=== PATIENT | female | born 1955 | race Caucasian/White ===

== ENCOUNTER 2019-05-19 13:29 | Inpatient (IN) | payer MEDICARE ==
[~2019-05-19] VITALS: Ht 160 cm; Wt 63.5 kg
[2019-05-19 14:18] LABS: BASOPHILS 0.5 % (0-2); EOSINOPHILS 2.6 % (0-7); HEMATOCRIT 33.4 % (36.0-48.0); HEMOGLOBIN 10.4 g/dL (12-16); IMMATURE GRANULOCYTES 0.5 % (0-5); LYMPHOCYTES 22.4 % (15-50); MCH 29.6 pg (26.0-34.0); MCHC 31.1 g/dL (31.0-37.0); MCV 95.2 fL (80.0-100.0); MEAN PLATELET VOLUME 8.6 fL (7.4-10.4); MONOCYTES 11.3 % (2-11); NEUTROPHILS 62.7 % (40-80); PLATELET COUNT 259 10x3/uL (130-400); RBC 3.51 10x6/uL (4.00-5.40); RDW 14.8 % (11.5-14.5); WBC 8.1 10x3/uL (4.8-10.8)
[2019-05-19 14:42] LABS: CALC OSMOLALITY 280 mosm/kg (275-300); CALCIUM 8.1 mg/dL (8.5-10.1); CARBON DIOXIDE 32.7 mmol/L (21.0-32.0); CHLORIDE - SERUM 99 mmol/L (98-107); GLUCOSE 107 mg/dL (74-106); POTASSIUM - SERUM 4.2 mmol/L (3.5-5.1); SODIUM 140 mmol/L (136-145); UREA NITROGEN 17 mg/dL (7-18); eGFR NON AFRICAN AMERICAN 12 mL/min (90-120)
[2019-05-19 14:50] LABS: APTT 40.2 SECONDS (22.8-39.4)
[2019-05-19 14:51] LABS: INR 1.08 (0.85-1.17)
[2019-05-19 15:01] LABS: ALBUMIN 3.1 g/dL (3.4-5.0); ALKALINE PHOSPHATASE 67 U/L (30-120); ALT (SGPT) 11 U/L (10-68); BILIRUBIN - TOTAL 0.69 mg/dL (0.2-1.3); CKMB 0.7 U/L (0.0-3.6); CREATINE KINASE 64 UL (21-215); PROTEIN - SERUM 6.9 g/dL (6.4-8.2)
[2019-05-19 15:02] LABS: TROPONIN-I < 0.017 ng/mL (0.000-0.060)
[2019-05-19 15:22] LABS: PRO BNP 121088 pg/mL (0-125)
--- NOTE | 2019-05-19 17:00 | NUR ---
EDP STATES SHE ONLY WANTS PT TO HAVE 200 ML OF IVF NS.
[2019-05-19 19:00] VITALS: BP 179/84
--- NOTE | 2019-05-19 19:32 | NUR ---
PT ASKED FOR URINE, PT STATES SHE IS ON DIALYSIS AND DOES NOT MAKE URINE ANYMORE.
[2019-05-19] MEDS ORDERED: COREG12.5 MG PO (20:09)
[2019-05-19] MEDS ORDERED: FLUTICASONE PRO16 GM NASAL (20:09)
[2019-05-19] MEDS ORDERED: EMLA CREAM 30 G30 G1 TOPICAL (20:09)
[2019-05-19] MEDS ORDERED: PROTONIX40 MG PO (20:10)
[2019-05-19] MEDS ORDERED: RENVELA800 MG PO (20:10)
[2019-05-19] MEDS ORDERED: SYNTHROID88 MCG PO (20:11)
[2019-05-19] MEDS ORDERED: AMBIEN10 MG PO (20:11)
[2019-05-19] MEDS ORDERED: HYDROXYZINE HCL10 MG PO (20:12)
[2019-05-19] MEDS ORDERED: PROBIOTIC1 EAC1 PO (20:13)
[2019-05-19 20:20] VITALS: BMI 24.8
[2019-05-19 22:23] VITALS: BP 142/69
--- NOTE | 2019-05-19 23:30 | NUR ---
CALL OUT TO [employer]N HYDRAULIC PRESS OPERATOR FOR DR SPENCER, TO ASK FOR PTS HOME DOSE OF AMBIEN.
[2019-05-20 00:48] VITALS: BP 134/65
[2019-05-20 05:22] VITALS: BP 122/56
[2019-05-20 11:02] VITALS: BP 130/65
[2019-05-20 12:00] VITALS: BP 131/68
[2019-05-20] MEDS ORDERED: CETIRIZINE HCL5 MG PO (12:21)
[2019-05-20] MEDS ORDERED: FOLIC ACID1 MG PO (12:23)
[2019-05-20] MEDS ORDERED: COLACE100 MG PO (12:23)
[2019-05-20] MEDS ORDERED: PHOSLO667 MG PO (12:27)
--- NOTE | 2019-05-20 12:33 | NUR ---
SPOKE WITH VANNESA MIKE AND SHE STATES TO ORDER ALL THE NEW MEDS THAT WERE ADDED TO THE MED REC. I VERBALIZED UNDERSTANDING.
[2019-05-20 13:41] VITALS: Ht 160 cm; Wt 63.5 kg
[2019-05-20 14:48] LABS: BACTERIA MANY /hpf (NEGATIVE); BILIRUBIN NEGATIVE (NEGATIVE); GLUCOSE NEGATIVE (NEGATIVE); KETONE NEGATIVE (NEGATIVE); NITRITE NEGATIVE (NEGATIVE); RED CELLS - URINE >50 /hpf (0-5); SPECIFIC GRAVITY 1.005 (1.005-1.020); UROBILINOGEN NORMAL (NORMAL)
--- NOTE | 2019-05-20 15:56 | NUR ---
I have reviewed this patient and I concur with the Shift Assessment completed by the Licensed Practical Nurse today this shift.
[2019-05-20 16:00] VITALS: BP 170/76
--- NOTE | 2019-05-20 19:22 | NUR ---
EVENING ROUNDS COMPLETE. PT LAYING IN BED. NO SIGNS OF DISTRESS. AAOX4. PT DENIES ANY PAIN OR NEEDS AT THIS TIME. CL IN REACH, BED IN LOWEST POSITION.
--- NOTE | 2019-05-20 20:30 | NUR ---
PT PIV TO RIGHT AC INFILTRATED. NEW PIV 20G STARTED IN RIGHT FOREARM. NO SIGNS OF DISTRESS. PT TOLERATED WELL. NO OTHER NEEDS OR PAIN VOICED AT THIS TIME. CL IN REACH, BED IN LOWEST POSITION.
[2019-05-20 22:02] VITALS: BP 155/85
[2019-05-21 01:14] VITALS: BP 150/67
[2019-05-21 05:31] LABS: BASOPHILS 0.1 % (0-2); EOSINOPHILS 0.1 % (0-7); HEMATOCRIT 26.8 % (36.0-48.0); HEMOGLOBIN 8.4 g/dL (12-16); IMMATURE GRANULOCYTES 0.5 % (0-5); LYMPHOCYTES 26.3 % (15-50); MCH 29.6 pg (26.0-34.0); MCHC 31.3 g/dL (31.0-37.0); MCV 94.4 fL (80.0-100.0); MEAN PLATELET VOLUME 8.8 fL (7.4-10.4); MONOCYTES 10.1 % (2-11); NEUTROPHILS 62.9 % (40-80); PLATELET COUNT 240 10x3/uL (130-400); RBC 2.84 10x6/uL (4.00-5.40); RDW 14.6 % (11.5-14.5); WBC 7.8 10x3/uL (4.8-10.8)
[2019-05-21 06:01] LABS: ANION GAP 13.3 mmol/L (8-16); CALCIUM 7.8 mg/dL (8.5-10.1); CARBON DIOXIDE 29.5 mmol/L (21.0-32.0); PHOSPHOROUS 5.4 mg/dL (2.5-4.9); POTASSIUM - SERUM 4.8 mmol/L (3.5-5.1); URIC ACID 5.6 mg/dL (2.6-7.2)
[2019-05-21 06:12] LABS: CREATININE - SERUM 7.9 mg/dL (0.6-1.3)
[2019-05-21 06:51] VITALS: BP 170/84
--- NOTE | 2019-05-21 11:59 | NUR ---
I have reviewed this patient and I concur with the Shift Assessment completed by the Licensed Practical Nurse today this shift.
--- NOTE | 2019-05-21 17:00 | NUR ---
COMPLETE LINEN CHANGE DONE.
[2019-05-21 18:31] VITALS: BP 162/74
[2019-05-21 20:00] VITALS: BP 159/82
[2019-05-22 01:33] VITALS: BP 183/82
[2019-05-22 04:00] VITALS: BP 161/75
[2019-05-22 05:40] LABS: BASOPHILS 0.6 % (0-2); EOSINOPHILS 7.6 % (0-7); HEMATOCRIT 27.2 % (36.0-48.0); HEMOGLOBIN 8.3 g/dL (12-16); IMMATURE GRANULOCYTES 0.9 % (0-5); LYMPHOCYTES 33.3 % (15-50); MCH 29.3 pg (26.0-34.0); MCHC 30.5 g/dL (31.0-37.0); MCV 96.1 fL (80.0-100.0); MEAN PLATELET VOLUME 8.5 fL (7.4-10.4); MONOCYTES 8.1 % (2-11); NEUTROPHILS 49.5 % (40-80); PLATELET COUNT 192 10x3/uL (130-400); RBC 2.83 10x6/uL (4.00-5.40); RDW 14.7 % (11.5-14.5); WBC 8.9 10x3/uL (4.8-10.8)
[2019-05-22 05:49] LABS: % SATURATION 27 % (15-55); IRON 30 ug/dl (35-150); TOTAL IRON BIND CAPACITY 109 ug/dl (260-445); UNSAT IRON BIND CAPACITY 79 ug/dl (150-375)
[2019-05-22 06:09] LABS: ANION GAP 11.5 mmol/L (8-16); CALCIUM 7.8 mg/dL (8.5-10.1); CARBON DIOXIDE 30.2 mmol/L (21.0-32.0); POTASSIUM - SERUM 4.7 mmol/L (3.5-5.1)
[2019-05-22 06:17] LABS: PHOSPHOROUS 3.9 mg/dL (2.5-4.9)
--- NOTE | 2019-05-22 07:45 | NUR ---
ASSESSMENT DONE. FAMILY AT SIDE.
[2019-05-22 09:35] VITALS: BP 154/82
--- NOTE | 2019-05-22 12:27 | NUR ---
TO GI LAB FOR BRONCH
[2019-05-22 13:42] VITALS: BP 161/97
[2019-05-22 18:32] VITALS: BP 156/72
[2019-05-22 20:00] VITALS: BP 134/68
[2019-05-23] VITALS: BP 172/82
[2019-05-23 04:00] VITALS: BP 178/68
[2019-05-23 06:35] LABS: BASOPHILS 0.2 % (0-2); EOSINOPHILS 6.9 % (0-7); HEMOGLOBIN 8.8 g/dL (12-16); IMMATURE GRANULOCYTES 0.5 % (0-5); LYMPHOCYTES 19.2 % (15-50); MCH 29.5 pg (26.0-34.0); MCHC 30.3 g/dL (31.0-37.0); MCV 97.3 fL (80.0-100.0); MEAN PLATELET VOLUME 8.8 fL (7.4-10.4); MONOCYTES 8.5 % (2-11); NEUTROPHILS 64.7 % (40-80); PLATELET COUNT 227 10x3/uL (130-400); RBC 2.98 10x6/uL (4.00-5.40); RDW 15.2 % (11.5-14.5)
[2019-05-23 06:41] LABS: WBC 12.7 10x3/uL (4.8-10.8)
[2019-05-23 07:06] LABS: ANION GAP 15.8 mmol/L (8-16); PHOSPHOROUS 4.5 mg/dL (2.5-4.9); POTASSIUM - SERUM 4.8 mmol/L (3.5-5.1); VANCOMYCIN - RANDOM 21.3 ug/mL (10.0-20.0)
[2019-05-23 07:08] LABS: CREATININE - SERUM 7.6 mg/dL (0.6-1.3)
--- NOTE | 2019-05-23 07:20 | NUR ---
ASSESSMENT DOME. DENIES NEEDS
[2019-05-23 09:10] VITALS: BP 166/81
--- NOTE | 2019-05-23 12:47 | NUR ---
Nutrition Follow-up: Eating well. ~100% of breakfast eaten this AM. Denies N/V/C/D, chewing/swallowing difficulties. Diet: Renal No new wt; last wt: 140# (05/19) Last BM: 05/21 Labs noted: K+ 4.8, Ca 7.0 Meds noted: Protonix, Renagel, Phoslo -Continue current diet as tolerated. -RD following.
[2019-05-23 13:10] LABS: PROCALCITONIN 0.33 ng/mL (0.00-0.08)
--- NOTE | 2019-05-23 15:39 | NUR ---
I have reviewed this patient and I concur with the Shift Assessment completed by the Licensed Practical Nurse today this shift.
[2019-05-23 17:50] VITALS: BP 169/66
--- NOTE | 2019-05-23 19:10 | NUR ---
BEDSIDE REPORT RECEIVED FROM DAY SHIFT, PT CARE ASSUMED. INTRODUCED SELF AND WROTE NAME ON BOARD. PT LYING IN BED, WATCHING TV, AAOX4. DENIES ANY NEEDS AT THIS TIME. BED IN LOWEST POSITION, SR X2, CALL LIGHT WITHIN REACH. WILL CONTINUE TO MONITOR.
[2019-05-23 20:30] VITALS: BP 169/77
[2019-05-24 00:30] VITALS: BP 152/77
[2019-05-24 04:30] VITALS: BP 154/68
[2019-05-24 06:13] LABS: BASOPHILS 0.2 % (0-2); EOSINOPHILS 5.2 % (0-7); HEMATOCRIT 27.4 % (36.0-48.0); HEMOGLOBIN 8.4 g/dL (12-16); IMMATURE GRANULOCYTES 0.5 % (0-5); LYMPHOCYTES 16.7 % (15-50); MCH 29.9 pg (26.0-34.0); MCHC 30.7 g/dL (31.0-37.0); MCV 97.5 fL (80.0-100.0); MEAN PLATELET VOLUME 8.8 fL (7.4-10.4); MONOCYTES 11.3 % (2-11); NEUTROPHILS 66.1 % (40-80); PLATELET COUNT 196 10x3/uL (130-400); RBC 2.81 10x6/uL (4.00-5.40); RDW 15.1 % (11.5-14.5); WBC 12.5 10x3/uL (4.8-10.8)
[2019-05-24 06:32] LABS: ANION GAP 10.8 mmol/L (8-16)
[2019-05-24 06:33] LABS: CREATININE - SERUM 5.4 mg/dL (0.6-1.3); PHOSPHOROUS 2.8 mg/dL (2.5-4.9); POTASSIUM - SERUM 3.8 mmol/L (3.5-5.1)
--- NOTE | 2019-05-24 07:43 | NUR ---
RECIEVED REPORT. PATIENT IS ALERT AND AWAKE. DENIES ANY NEEDS AT THIS TIME.
[2019-05-24 08:58] VITALS: BP 191/78
[2019-05-24] MEDS ORDERED: SYMBICORT 80-10.2 GM INH (11:45)
[2019-05-24 12:20] VITALS: BP 182/90
--- NOTE | 2019-05-24 12:39 | MORECARE ---
CASE MANAGEMENT DISCHARGE SUMMARY PATIENT: ESMER LAST UNIT: [id number] ADM DATE: 05/19/19 AGE: 64 : 53 SEX: F ROOM/BED: D.1830 AUTHOR: ALEKS MCHUGH PHYSICIAN: REFERRING PHYSICIAN: DOMINICK VELASQUEZ MD DATE OF SERVICE: 05/24/19 Discharge Plan Patient Name: ESMER LAST Facility: [facility]:[place] : 1955 Planned Disposition: Home Anticipated Discharge Date: Discharge Date: Expected LOS: Initial Reviewer: [email or web address] Initial Review Date: 05/24/2019 Generated: 05/24/19 1:38 pm Comments DCP- Discharge Planning Updated by [email or web address]: Bushra Kay on 05/24/19 11:[address] Patient Name: ESMER LAST Admission Status: ER Accout number: [id number] Admission Date: 05-19-2019 : 1955 Admission Diagnosis: Attending: Dominick Velasquez Current LOS: 5 Anticipated DC Date: Planned Disposition: Home Primary Insurance: MEDICARE A & B Discharge Planning Comments: ESMER LAST provided verbal consent to discuss current and ongoing needs with/in the presence of SPOUSE. PLANS TO DC TO HOME TODAY. DENIES NEEDS FOR EQUIPMENT, HOME HEALTH OR REHAB. CM TO FOLLOW AND ASSIST NEEDED. IMM SIGNED. Rivet Flunky: Bushra MARINO - Discharge Planning Initial Assessment Updated by [email or web address]: Bushra Kay on 05/24/19 12:34 pm * Is the patient Alert and Oriented? Yes * PCP JOHANNA * Pharmacy [facility] * Preadmission Environment Home with Family * ADLs Independent * Other Equipment NEBULIZER * Community resources currently utilized None * Additional services required to return to the preadmission environment? No * Can the patient safely return to the preadmission environment? Yes * Has this patient been hospitalized within the prior 30 days at any hospital? No Coverage Notice Reviewer: [email or web address] - Bushra Kay Notice Issued Date-Time: 05/24/2019 12:32 Notice Type: IM Discharge Notice Notice Delivered To: Patient Relationship to Patient: Extension Service Specialist In Charge Name: Delivery Method: HAND - Hand Delivered Reyna Days: Prior Verbal Notification: Recipient Understood Notice: Yes Recipient Signature: Yes Med Rec Note Co-signed by Attending: Coverage Notice Comment: Patient Name: ESMER LAST Page 18589 at 1239 All edits/amendments must be made on the electronic document DICTATION DATE: 05/24/198 ATTIC BLOWER: JOSEP 05/24/198 RPT#: [id number] DC DATE: STATUS: ADM IN [facility] [address] [place] [address] END OF REPORT
--- NOTE | 2019-05-24 13:30 | NUR ---
PATIENT HAS BEEN DISCHARGED. DISCHARGE TEACHING HAS BEEN DONE AND PAPERS SIGNED. IV REMOVED WITH CATHETER INTACT. PATIENT IS GOING DOWNSTAIRS BY WHEELCHAIR AND ALL HER BELONGINGS HAVE BEEN PACKED UP AND ARE GOING WITH HER. IS GIVING HER A RIDE HOME.
[2019-05-24 14:08] LABS: ACID FAST SMEAR Negative (()); AFB SPECIMEN PROCESSING Concentration (())
--- NOTE | 2019-05-24 15:42 | MORECARE ---
CASE MANAGEMENT DISCHARGE SUMMARY PATIENT: ESMER LAST UNIT: [id number] ADM DATE: 05/19/19 AGE: 64 : 53 SEX: F ROOM/BED: D.6092 AUTHOR: ALEKS MCHUGH PHYSICIAN: REFERRING PHYSICIAN: DOMINICK VELASQUEZ MD DATE OF SERVICE: 05/24/19 Discharge Plan Patient Name: ESMER LAST Facility: [facility]:[place] : 1955 Planned Disposition: Home Anticipated Discharge Date: Discharge Date: 05/24/2019 Expected LOS: Initial Reviewer: [email or web address] Initial Review Date: 05/24/2019 Generated: 05/24/19 4:41 pm Comments DCP- Discharge Planning Updated by [email or web address]: Bushra Kay on 05/24/19 11:[address] Patient Name: ESMER LAST Admission Status: ER Accout number: [id number] Admission Date: 05-19-2019 : 1955 Admission Diagnosis: Attending: Dominick Velasquez Current LOS: 5 Anticipated DC Date: Planned Disposition: Home Primary Insurance: MEDICARE A & B Discharge Planning Comments: ESMER LAST provided verbal consent to discuss current and ongoing needs with/in the presence of SPOUSE. PLANS TO DC TO HOME TODAY. DENIES NEEDS FOR EQUIPMENT, HOME HEALTH OR REHAB. CM TO FOLLOW AND ASSIST NEEDED. IMM SIGNED. Lithographic Press Operator: Bushra MARINO - Discharge Planning Initial Assessment Updated by [email or web address]: Bushra Kay on 05/24/19 12:34 pm * Is the patient Alert and Oriented? Yes * PCP JOHANNA * Pharmacy [facility] * Preadmission Environment Home with Family * ADLs Independent * Other Equipment NEBULIZER * Community resources currently utilized None * Additional services required to return to the preadmission environment? No * Can the patient safely return to the preadmission environment? Yes * Has this patient been hospitalized within the prior 30 days at any hospital? No Coverage Notice Reviewer: [id number] - Bushra Kay Notice Issued Date-Time: 05/24/2019 12:32 Notice Type: IM Discharge Notice Notice Delivered To: Patient Relationship to Patient: Drop Count Associate Name: Delivery Method: HAND - Hand Delivered Reyna Days: Prior Verbal Notification: Recipient Understood Notice: Yes Recipient Signature: Yes Med Rec Note Co-signed by Attending: Coverage Notice Comment: Last DP export: 05/24/19 11:39 a Patient Name: ESMER LAST Page [phone] at 1542 All edits/amendments must be made on the electronic document DICTATION DATE: 05/24/191541 STAVE LOG CUT OFF SAW OPERATOR: JOSEP 05/24/19 1542 RPT#: [id number] DC DATE:05/24/19 STATUS: DIS IN [address] [place] [address] END OF REPORT
[2019-05-26 13:09] LABS: FUNGUS STAIN Final report (())
== END 2019-05-24 13:38 | disposition home or self-care (01) | DRG 193 ==
LOC: D.ER 13:29 → D.M2 17:59
PROVIDERS: Family Medicine; Internal Medicine Pulmonary Disease; ADMIT Internal Medicine Nephrology; ATTEND Internal Medicine Nephrology
PROC: 5A1D70Z Performance of Urinary Filtration, Intermittent, Less than 6 Hours Per Day (ICD-10-PCS; 2019-05-21)
PROC: 0BD48ZX Extraction of Right Upper Lobe Bronchus, Via Natural or Artificial Opening Endoscopic, Diagnostic (ICD-10-PCS; 2019-05-22)
PROC: 0B9J8ZX Drainage of Left Lower Lung Lobe, Via Natural or Artificial Opening Endoscopic, Diagnostic (ICD-10-PCS; 2019-05-22)
PROC: 0B9C8ZX Drainage of Right Upper Lung Lobe, Via Natural or Artificial Opening Endoscopic, Diagnostic (ICD-10-PCS; 2019-05-22)
PROC: 0B9F8ZX Drainage of Right Lower Lung Lobe, Via Natural or Artificial Opening Endoscopic, Diagnostic (ICD-10-PCS; 2019-05-22)
PROC: 0BD68ZX Extraction of Right Lower Lobe Bronchus, Via Natural or Artificial Opening Endoscopic, Diagnostic (ICD-10-PCS; principal; 2019-05-22 13:00)
DX: J18.9 Pneumonia, unspecified organism (principal); N18.6 End stage renal disease; I12.0 Hypertensive chronic kidney disease with stage 5 chronic kidney disease or end stage renal disease; D63.1 Anemia in chronic kidney disease; E83.39 Other disorders of phosphorus metabolism; N30.90 Cystitis, unspecified without hematuria

== ENCOUNTER → 2019-05-28 15:20 | Outpatient (CLI) | payer MEDICARE ==
[2019-05-20 13:41] VITALS: BMI 24.8
[~2019-05-28 15:20] MED LIST: AMBIEN10 MG PO; CETIRIZINE HCL5 MG PO; COLACE100 MG PO; COREG12.5 MG PO; EMLA CREAM 30 G30 G1 TOPICAL; FLUTICASONE PRO16 GM NASAL; FOLIC ACID1 MG PO; HYDROXYZINE HCL10 MG PO; PHOSLO667 MG PO; PROBIOTIC1 EAC1 PO; PROTONIX40 MG PO; RENVELA800 MG PO; SYMBICORT 80-10.2 GM INH; SYNTHROID88 MCG PO
[2019-05-29 05:09] LABS: IMMUNOGLOBULIN G 1323 mg/dL (700-1600)
[2019-05-29 08:09] LABS: DOUBLE-STRANDED DNA ABS <1 IU/mL (0-9)
== END | disposition home or self-care (01) ==
LOC: D.LAB 15:20
PROVIDERS: ATTEND Internal Medicine Pulmonary Disease
DX: N18.6 End stage renal disease (principal)

== ENCOUNTER 2019-07-08 14:31 | Emergency (ER) | payer MEDICARE ==
[~2019-07-08] VITALS: Ht 160 cm; Wt 59.1 kg
[2019-07-08 14:46] VITALS: Ht 160 cm; Wt 59.1 kg
[2019-07-08 15:12] LABS: BASOPHILS 0.7 % (0-2); EOSINOPHILS 1.7 % (0-7); HEMATOCRIT 41.8 % (36.0-48.0); HEMOGLOBIN 12.4 g/dL (12-16); IMMATURE GRANULOCYTES 0.2 % (0-5); LYMPHOCYTES 22.1 % (15-50); MCHC 29.7 g/dL (31.0-37.0); MCV 97.9 fL (80.0-100.0); MEAN PLATELET VOLUME 9.6 fL (7.4-10.4); NEUTROPHILS 63.3 % (40-80); PLATELET COUNT 200 10x3/uL (130-400); RBC 4.27 10x6/uL (4.00-5.40); RDW 15.3 % (11.5-14.5); WBC 8.7 10x3/uL (4.8-10.8)
[2019-07-08 15:42] LABS: BILIRUBIN NEGATIVE (NEGATIVE); GLUCOSE NEGATIVE (NEGATIVE); KETONE NEGATIVE (NEGATIVE); NITRITE NEGATIVE (NEGATIVE); UROBILINOGEN NORMAL (NORMAL)
[2019-07-08 15:44] LABS: BACTERIA FEW /hpf (NEGATIVE); EPITHELIAL CELLS OCC /hpf (0-5); RED CELLS - URINE >50 /hpf (0-5)
[2019-07-08 15:48] LABS: CALCIUM 8.6 mg/dL (8.5-10.1); CARBON DIOXIDE 31.9 mmol/L (21.0-32.0); CREATININE - SERUM 7.6 mg/dL (0.6-1.3); POTASSIUM - SERUM 4.9 mmol/L (3.5-5.1)
[2019-07-08 16:00] LABS: ALBUMIN 3.7 g/dL (3.4-5.0); BILIRUBIN - TOTAL 0.41 mg/dL (0.2-1.3)
[2019-07-08] MEDS ORDERED: HYDROCODON-ACE1 EAC7 PO (16:22)
[2019-07-08] MEDS ORDERED: FLOMAX0.4 MG PO (16:22)
[2019-07-08] MEDS ORDERED: ZOFRAN4 MG PO (16:37)
[2019-07-08 20:05] VITALS: BP 179/83
== END 2019-07-08 20:05 | disposition home or self-care (01) ==
LOC: D.ER 14:31
PROVIDERS: Family Medicine
DX: N20.1 Calculus of ureter (principal); Z99.2 Dependence on renal dialysis; E07.9 Disorder of thyroid, unspecified; I12.9 Hypertensive chronic kidney disease with stage 1 through stage 4 chronic kidney disease, or unspecified chronic kidney disease; N18.9 Chronic kidney disease, unspecified; R31.9 Hematuria, unspecified; R10.30 Lower abdominal pain, unspecified

== ENCOUNTER → 2019-07-16 20:51 | Outpatient (CLI) | payer MEDICARE ==
[2019-07-08 14:46] VITALS: BMI 23.0
[~2019-07-16 20:51] MED LIST changes: +FLOMAX0.4 MG PO; +HYDROCODON-ACE1 EAC7 PO; +ZOFRAN4 MG PO
== END | disposition home or self-care (01) ==
LOC: D.LABREF 20:51
PROVIDERS: ATTEND Urology
DX: R31.9 Hematuria, unspecified (principal); R82.90 Unspecified abnormal findings in urine

== ENCOUNTER → 2019-07-31 10:20 | Outpatient (CLI) | payer MEDICARE ==
[2019-07-08 14:46] VITALS: BMI 23.0
== END | disposition home or self-care (01) ==
LOC: D.RT 06-25 14:00 → D.CT 06-25 15:00 → D.RT 07-15 12:00 → D.CT 07-15 12:00 → D.RT 07-15 15:00 → D.CT 07-15 15:30 → D.RT 10:30 → D.CT 11:00 → D.RT 08-14 13:00
PROVIDERS: ATTEND Internal Medicine Pulmonary Disease
DX: R05 Cough (principal); R93.89 Abnormal findings on diagnostic imaging of other specified body structures

== ENCOUNTER → 2019-08-02 14:54 | Outpatient (CLI) | payer MEDICARE ==
[2019-07-08 14:46] VITALS: BMI 23.0
== END | disposition home or self-care (01) ==
LOC: D.LABREF 14:54
PROVIDERS: ATTEND Internal Medicine Pulmonary Disease
DX: R06.02 Shortness of breath (principal)

== ENCOUNTER → 2019-08-05 14:45 | Outpatient (CLI) | payer MEDICARE ==
[2019-07-08 14:46] VITALS: BMI 23.0
== END | disposition home or self-care (01) ==
LOC: D.RT 14:45
PROVIDERS: ATTEND Internal Medicine Pulmonary Disease
DX: R05 Cough (principal)

== ENCOUNTER 2019-09-19 06:14 | Day surgery (SDC) | payer MEDICARE ==
[~2019-09-19] VITALS: Ht 160 cm; Wt 61.2 kg
--- NOTE | ~2019-09-19 | OP ---
PATIENT NAME: ESMER FLANAGAN MEDICAL RECORD: [id number] :[birth year] LOCATION:[facility] ADMISSION DATE: SURGEON: DILSHAD JHAVERI MD DATE OF OPERATION: 09/19/2019 REFERRED BY: Kannan Harley MD PREOPERATIVE DIAGNOSES: End-stage renal disease, dependence on hemodialysis and ischemic steal syndrome with gangrenous ulceration occurring on the dorsum of the left metacarpophalangeal joint and tips of the first and second and third fingers. POSTOPERATIVE DIAGNOSES: End-stage renal disease, dependence on hemodialysis and ischemic steal syndrome with gangrenous ulceration occurring on the dorsum of the left metacarpophalangeal joint and tips of the first and second and third fingers. OPERATION PERFORMED: Ligation of AV fistula. SURGEON: Dilshad Jhaveri MD ANESTHESIA: General with LMA per RN MOBILE. PREOPERATIVE NOTE: Ms. Flanagan is a 64-year-old white female patient who has had a left brachiocephalic AV fistula for about 2 years, it was constructed in [place] by her history. She apparently had very early steal symptoms, which required at least 1 revisionary operation, which resulted in at least short term moderate reduction and symptoms, but she has for many months now continued to have numbness and ischemic pain in the hand, particularly while on dialysis. She has developed ulcerations of the tips of 3 fingers and more concerning an ulceration over the second MP joint, which extends down to or close to the bone or periosteum. This area is very painful. She has been treated at the [facility] wound clinic without success and Dr. Wisdom has apparently felt that there was likely ongoing ischemia, now for some time. She was studied at [facility] this week and noted to have very little flow into the hand with the fistula functioning and Dr. Harley referred her to me. Because of the length of her symptoms and the severity of the hand lesions, I have recommended ligation of the fistula and an option would perhaps have been banding, a better option perhaps proximal arterialization or implantation of the graft between the proximal brachial or even the axillary artery and the cephalic vein fistula; however, I think the best thing to do today is to ligate the fistula and come back another day after we get bilateral upper extremity CTAs to evaluate the arterial inflow. She will need a bridging catheter and so was to have a HemoSplit inserted. DESCRIPTION OF PROCEDURE: Under general anesthesia per RN MOBILE, she was prepped and draped in sterile manner. The arm was extended and a transverse incision across the antecubital space made and the underlying cephalic vein fistula exposed and encircled and ligated doubly with 2-0 silk close to the arterial anastomosis and proximal. The radial artery pulse at the wrist immediately returned and was quite strong, and her hand began to pink up rapidly. The wound was infiltrated with 0.25% Marcaine without epinephrine and closed with interrupted inverted 3-0 Vicryl sutures and running intracuticular OPERATIVE REPORT [id number] ESMER FLANAGAN. The incision was sealed with Dermabond glue and dressed with Maxorb Ag, Tegaderm, and Cavilon skin prep. The patient was then completely reprepped and redraped for insertion of a HemoSplit. I located the right internal jugular vein with ultrasound and noted it to be of normal caliber and fully compressible and no sonographic abnormalities were identified. A small incision was made over the vein and with continuous real-time ultrasound guidance, a micropuncture needle and guidewire were inserted into the internal jugular vein. A catheter wire exchange was made and then under fluoroscopy, the guidewire was placed in the right atrium and dilators passed over that and lastly a dilator peel-away sheath inserted. I chose a 19-cm long HemoSplit catheter and made a small incision beneath the clavicle and inserted the catheter through that incision and through a short subcutaneous tunnel, bringing it up to the cervical incision and then it was inserted through the peel-away sheath. It was positioned with the venous limb lateral. Both lumens were accessed and aspirated, free return of blood from each was confirmed after which the catheter was heparin locked with 100 units per cc heparin. The catheter was sutured to the skin near the entry site with 2-0 Prolene and the cervical incision was closed with interrupted inverted 3-0 Vicryl and Dermabond glue and dressed with Maxorb Ag, Tegaderm, and Cavilon skin prep. A standard CVL dressing with chlorhexidine BioPatch was placed on the catheter. Ultrasound images are recorded on paper and placed in the patient's chart for permanent documentation purposes. The patient will be discharged from the hospital today and return to see me in my office in 2 weeks. She is to leave the initial dressing dry and intact. I have asked if possible, she have an appointment made to see Dr. Wisdom next week. My concern is that any infection in the soft tissues or periosteum be cleared up before and any osteomyelitis identified and treated appropriately. I will plan to return her to the operating room at some point in the near future after we get bilateral upper extremity CTAs and when her hand is dramatically better. Blood loss during the operation was about 10 cc, unreplaced. Sponges, instruments, and needles were accounted for. No drain was used and no surgical specimen was submitted for histopathology. TRANSINT:[id number] Voice Confirmation ID: [id number] DOCUMENT ID: [id number] cc: [facility] DILSHAD JHAVERI MD CC: KANNAN HARLEY and REINALDO WISDOM MD [id number] DICTATION DATE: 09/19/19 1242 JEWEL BEARING TURNER: 09/19/19 1350 [facility] [address] [place] [address]
[2019-09-19 06:43] LABS: BASOPHILS 0.8 % (0-2); EOSINOPHILS 5.3 % (0-7); HEMATOCRIT 36.8 % (36.0-48.0); HEMOGLOBIN 10.9 g/dL (12-16); IMMATURE GRANULOCYTES 0.3 % (0-5); MCH 28.5 pg (26.0-34.0); MCHC 29.6 g/dL (31.0-37.0); MCV 96.3 fL (80.0-100.0); MEAN PLATELET VOLUME 8.6 fL (7.4-10.4); MONOCYTES 12.3 % (2-11); NEUTROPHILS 49.3 % (40-80); PLATELET COUNT 161 10x3/uL (130-400); RBC 3.82 10x6/uL (4.00-5.40); RDW 14.8 % (11.5-14.5); WBC 6.6 10x3/uL (4.8-10.8)
[2019-09-19 06:52] LABS: ANION GAP 9.6 mmol/L (8-16); CALCIUM 7.8 mg/dL (8.5-10.1); CARBON DIOXIDE 32.9 mmol/L (21.0-32.0); CREATININE - SERUM 5.8 mg/dL (0.6-1.3); POTASSIUM - SERUM 4.5 mmol/L (3.5-5.1)
[2019-09-19 07:01] LABS: INR 0.92 (0.85-1.17); PROTIME 12.3 SECONDS (11.6-15.0)
[2019-09-19 08:50] VITALS: Ht 160 cm; Wt 61.2 kg
[2019-09-19] MEDS ORDERED: HYDROCODON-ACE1 EAC7 PO (11:50)
--- NOTE | 2019-09-19 11:54 | NUR ---
ICE APPLIED TO CHEST HEMESPLIT PER VERBAL ORDER . L.HAND DRSG CDI, L.ARM DRSG CDI. BP TRENDING DOWN POST IV HYDRALAZINE TREATMENT. PAIN GETTING BETTER PER PATIENT POST IV PAIN MEDICATION GIVEN. NO FURTHER NEEDS. WILL TRANSFER PT BACK TO OUTPATIENT SHORTLY.
--- NOTE | 2019-09-19 18:43 | NUR ---
1207 PT HAS A HEMASPLIT IN RIGHT SUBCLAVIAN. DSG CDI. 1400 PT STILL VERY SLEEPY AND KEEPING A LOW OXYGEN SATURATION. BNC 2L PUT ON PT. 1455 PT MORE AWAKE AND WANTING TO SIT UP. DC'D. BNC. O2 SAT ON BNC 98%. 1458 PT BECOMING NAUSEATED AFTER SITTING ON SOB. 1520 IV DC'D BY ADAM LIND RN AFTER GIVING IV ZOFRAN. IV WOULD NOT FLUSH PROPERLY. PT NOT NAUSEATED AT THE MOMENT
--- NOTE | 2019-09-19 18:52 | NUR ---
1535 PT NAUSEATED AGAIN. DRY HEAVING. SL ZOFRAN GIVEN TO PT PER ADAM LIND, RN 1605 PT VSS. DENIES NAUSEA AFTER SL ZOFRAN. PT VOICES DESIRE TO GO HOME. DISCHARGE INSTRUCTIONS WERE GIVEN TO HER AND HER WHO BOTH VOICE UNDERSTANDING OF INSTRUCTIONS. PT AAOX3.
== END 2019-09-19 16:05 | disposition home or self-care (01) ==
LOC: D.OPS 06:14
PROVIDERS: ATTEND Internal Medicine Nephrology
DX: N18.6 End stage renal disease (principal); Z99.2 Dependence on renal dialysis; T82.898A Other specified complication of vascular prosthetic devices, implants and grafts, initial encounter; R06.02 Shortness of breath; R05 Cough; M79.672 Pain in left foot; M79.671 Pain in right foot; Z86.73 Personal history of transient ischemic attack (TIA), and cerebral infarction without residual deficits

== ENCOUNTER 2019-09-21 16:10 | Inpatient (IN) | payer MEDICARE ==
[~2019-09-21] VITALS: Ht 160 cm; Wt 63.0 kg
[2019-09-21 17:27] LABS: HEMATOCRIT 30.9 % (36.0-48.0); HEMOGLOBIN 9.7 g/dL (12-16); LYMPHOCYTES 29.7 % (15-50); MCH 29.5 pg (26.0-34.0); MCHC 31.4 g/dL (31.0-37.0); MCV 93.9 fL (80.0-100.0); MEAN PLATELET VOLUME 8.3 fL (7.4-10.4); NEUTROPHILS 55.2 % (40-80); PLATELET COUNT 145 10x3/uL (130-400); RBC 3.29 10x6/uL (4.00-5.40); RDW 14.3 % (11.5-14.5); WBC 8.1 10x3/uL (4.8-10.8)
[2019-09-21 17:34] LABS: APTT 34.5 SECONDS (22.8-39.4); INR 1.04 (0.85-1.17); PROTIME 13.5 SECONDS (11.6-15.0)
[2019-09-21 17:35] LABS: D-DIMER-QUANTITATIVE 1.02 ug/mLFEU (0.20-0.54)
--- NOTE | 2019-09-21 17:44 | NUR ---
US AT PT BEDSIDE
[2019-09-21 17:52] LABS: CALC OSMOLALITY 291 mosm/kg (275-300); CALCIUM 7.5 mg/dL (8.5-10.1); CARBON DIOXIDE 27.4 mmol/L (21.0-32.0); CHLORIDE - SERUM 100 mmol/L (98-107); CREATININE - SERUM 10.7 mg/dL (0.6-1.3); GLUCOSE 95 mg/dL (74-106); SODIUM 136 mmol/L (136-145); UREA NITROGEN 69 mg/dL (7-18); eGFR NON AFRICAN AMERICAN 4 mL/min (90-120)
--- NOTE | 2019-09-21 17:55 | NUR ---
ULTRA SOUND DONE. PT MINO. WELL.
[2019-09-21 18:06] LABS: BILIRUBIN NEGATIVE (NEGATIVE); GLUCOSE 50 mg/dL (NEGATIVE); KETONE NEGATIVE (NEGATIVE); NITRITE NEGATIVE (NEGATIVE); SPECIFIC GRAVITY 1.005 (1.005-1.020); UROBILINOGEN NORMAL (NORMAL)
[2019-09-21 18:07] LABS: BACTERIA FEW /hpf (NEGATIVE); EPITHELIAL CELLS 0-5 /hpf (0-5); RED CELLS - URINE 0-5 /hpf (0-5); WHITE CELLS - URINE 0-5 /hpf (NEGATIVE)
[2019-09-21 18:09] LABS: ALBUMIN 3.1 g/dL (3.4-5.0); ALKALINE PHOSPHATASE 119 U/L (30-120); ALT (SGPT) 32 U/L (10-68); CREATINE KINASE 79 UL (21-215); PROTEIN - SERUM 6.8 g/dL (6.4-8.2)
[2019-09-21 18:22] LABS: TROPONIN-I < 0.017 ng/mL (0.000-0.060)
[2019-09-21 18:26] LABS: POTASSIUM - SERUM 6.1 mmol/L (3.5-5.1)
--- NOTE | 2019-09-21 21:07 | NUR ---
DR CHRISTA CONNOR
--- NOTE | 2019-09-21 21:30 | NUR ---
DR GOODWIN INFORMED OF PT CONDITION, PT C/O SOB AND HTN. SEE EMAR.
--- NOTE | 2019-09-21 23:08 | NUR ---
PT BROUGHT TO ROOM CV 08 FROM THE FLOOR, PT IN RESP DISTRESS AND UNABLE TO SAY MORE 2-3 WORDS AT A TIME. PT WAS PLACED ON BIPAP, PT HAVING TO SIT IN HIGH FOLWER TO BREATH, PT USING ACESSORY MUSLCE TO BREATH, INTERCOSTAL RETRACTIONS, PT MOANING BUT WILL ANSWER QUESTIONS.
--- NOTE | 2019-09-21 23:17 | NUR ---
UNKNOWN TIME TO WHEN PT ARRIVED FROM ER TO 2136 I WAS IN ROOM TO RECIEVE PT I IMEDIATLY RECOGNIZED PT WS IN RESP DISTRESS SO I QUICKLY OVTAINED VS SPO2 80% DISPITE PT BEING ON 4 L I COULD HERE NO AIR MOVEMENT AND BP WAS NOT QUICKLY OBTAINED I CALLED A RAPID DURING RAPID APRESSOLINE 10MG WAS GIVEN BX TX AND BICARB AFTER BP 234/140 AND ABGS DONE DURING RAPID IT WAS DETERMINED PT NEEDED TRANSFER TO CVICU PT HAS NOW BEEN TRANSFERED TO CVICU-8 AND I HAVE NOTIFIED OF TRANSFER
[2019-09-21 23:21] VITALS: BP 209/106; BMI 24.6
--- NOTE | 2019-09-21 23:24 | NUR ---
NA/BICARB FLUIDS STOPED AT 2100
[2019-09-22] VITALS (12 sets, daily range): BP systolic 120–186; BP diastolic 69–111; Ht 160 cm; Wt 63.0 kg
--- NOTE | 2019-09-22 01:00 | NUR ---
PT STILL HAVING LABORED BREATHING BUT LESS ACCESSORY MUSCLE USE, PT STATES THAT SHE IS BREATHING A LITTLE BIT BETTER
--- NOTE | 2019-09-22 01:00 | NUR ---
PT SHOWING IMPROVED BREATHING AND LESS WORK OF BREATHING ON BIPAP, PT ADVISED THAT SHE WAS BREATHING MUCH BETTER
--- NOTE | 2019-09-22 02:00 | NUR ---
PT HAS MARKED IMPROVEMENT IN WORK OF BREATHING, PT IS MORE RELAXED AND ABLE TO TALK IN SENTENCES, VSS BECOMING MORE STABLE WILL MONITOR AND TREAT B/P NEEDED
--- NOTE | 2019-09-22 03:00 | NUR ---
PT REASSESSMENT COMPLETED AT THIS TIME, PT RESTING SOUNDLY, RESP EVEN AND NONLABORED, VSS, NO DISTRESS NOTED
--- NOTE | 2019-09-22 05:04 | NUR ---
DR. MCFADDEN CALLED AND WAS UPDATED ON THE PATIENTS COND. NEW ORDERS NOTED
[2019-09-22 07:05] LABS: BASOPHILS 0.2 % (0-2); EOSINOPHILS 0.2 % (0-7); HEMATOCRIT 34.8 % (36.0-48.0); HEMOGLOBIN 10.8 g/dL (12-16); IMMATURE GRANULOCYTES 0.2 % (0-5); LYMPHOCYTES 16.6 % (15-50); MCH 29.7 pg (26.0-34.0); MCV 95.6 fL (80.0-100.0); MEAN PLATELET VOLUME 8.8 fL (7.4-10.4); MONOCYTES 5.9 % (2-11); NEUTROPHILS 76.9 % (40-80); PLATELET COUNT 129 10x3/uL (130-400); RBC 3.64 10x6/uL (4.00-5.40); RDW 14.9 % (11.5-14.5)
[2019-09-22 07:10] LABS: WBC 10.7 10x3/uL (4.8-10.8)
[2019-09-22 07:12] LABS: ANION GAP 21.2 mmol/L (8-16); CALCIUM 8.3 mg/dL (8.5-10.1); CARBON DIOXIDE 21.7 mmol/L (21.0-32.0); CREATININE - SERUM 11.3 mg/dL (0.6-1.3); POTASSIUM - SERUM 5.9 mmol/L (3.5-5.1)
[2019-09-22 07:36] LABS: PHOSPHOROUS 10.4 mg/dL (2.5-4.9)
--- NOTE | 2019-09-22 08:51 | NUR ---
0700 PT RECIEVED ALERT AND ORIENTED VSS ON ROOM AIR L ARM RESERVE, REDNESS NOTED, RFA PIV SL, R CHEST HEMESPLIT DRESSING CDI, DENIES PAIN AND ALL NEEDS 0850 TOOK AM MEDS WITHOUT DIFFICULTY, ATE 50% BREAKFAST, DR MCFADDEN AWARE OF PHOSPHORUS, OK TO TRANSFER TO FLOOR NOW AND HAVE DIALYSIS IN OTHER UNIT
--- NOTE | 2019-09-22 09:27 | NUR ---
REPORT CALLED TO JD PT TO TRANSFER TO 2136, PT IN ROOM AND AWARE
--- NOTE | 2019-09-22 10:16 | NUR ---
PT ARIVED VIA WHEELCHIAR TO ROOM. ALERT AND ORIENTED, UP WITHOUT DIFFICULTY. NO COMPLAINTS OR CONCERNS AT THIS TIME. CL IN REACH,SR X2. AT BEDSIDE.
--- NOTE | 2019-09-22 11:23 | NUR ---
PT TAKEN TO DIALYSIS VIA BED.
--- NOTE | 2019-09-22 14:09 | NUR ---
PT STILL IN DIALYSIS.
--- NOTE | 2019-09-22 15:11 | NUR ---
PT AWAKE AND OREITNED, BACK FROM DIALYSIS.
--- NOTE | 2019-09-22 19:33 | NUR ---
DENIES ANY NEEDS AT THIS TIME PT IS ALERT AND AWAKE NO STRUGGLES TO BREATH BED LOW AND LOCKED AND CALL LIGHT IS WITH PT
[2019-09-23] VITALS (7 sets, daily range): BP systolic 153–210; BP diastolic 69–98
--- NOTE | 2019-09-23 05:00 | NUR ---
I have reviewed this patient and I concur with the Shift Assessment completed by the Licensed Practical Nurse today this shift.
--- NOTE | 2019-09-23 07:30 | NUR ---
REPORT RECIEVED. PT SITTING SEMI FOWLERS IN BED. RR EVEN AND UNLABORED ON RA. PT HAS A R HAND PIV THAT IS SL. BED LOCKED AND IN LOWEST POSITION, CALL LIGHT WITHIN REACH. WILL CTM
--- NOTE | 2019-09-23 19:23 | NUR ---
AROUSES EASILY PT DENIES NEEDS AT THIS TIME BED IS LOW AND LOCKED CALL LIGHT IS WITH THE PT
[2019-09-24] VITALS: BP 165/81
[2019-09-24 04:00] VITALS: BP 157/81
--- NOTE | 2019-09-24 05:44 | NUR ---
I have reviewed this patient and I concur with the Shift Assessment completed by the Licensed Practical Nurse today this shift.
[2019-09-24 06:42] LABS: ALBUMIN 2.6 g/dL (3.4-5.0); BILIRUBIN - TOTAL 0.42 mg/dL (0.2-1.3); CALCIUM 7.7 mg/dL (8.5-10.1); CREATININE - SERUM 9.6 mg/dL (0.6-1.3); MAGNESIUM - SERUM 2.3 mg/dL (1.8-2.4); PROTEIN - SERUM 5.2 g/dL (6.4-8.2); VANCOMYCIN - RANDOM 22.8 ug/mL (10.0-20.0)
[2019-09-24 06:43] LABS: ANION GAP 12.1 mmol/L (8-16); CARBON DIOXIDE 29.3 mmol/L (21.0-32.0); PHOSPHOROUS 7.1 mg/dL (2.5-4.9); POTASSIUM - SERUM 4.4 mmol/L (3.5-5.1)
[2019-09-24 07:05] LABS: HEMOGLOBIN 8.8 g/dL (12-16); LYMPHOCYTES 37.4 % (15-50); MCH 29.3 pg (26.0-34.0); MCHC 31.8 g/dL (31.0-37.0); MEAN PLATELET VOLUME 9.2 fL (7.4-10.4); NEUTROPHILS 48.4 % (40-80); PLATELET COUNT 130 10x3/uL (130-400); RDW 13.7 % (11.5-14.5)
[2019-09-24 07:07] LABS: HEMATOCRIT 27.7 % (36.0-48.0); MCV 92.3 fL (80.0-100.0); WBC 6.8 10x3/uL (4.8-10.8)
[2019-09-24 10:10] VITALS: BP 179/95
== END 2019-09-24 16:54 | disposition home or self-care (01) | DRG 314 ==
LOC: D.ER 16:10 → D.CVICU 19:21 → D.M2 19:21 → D.CVICU 23:09 → D.M2 09-22 09:47
PROVIDERS: Family Medicine; Internal Medicine Nephrology; ADMIT Internal Medicine; ATTEND Internal Medicine
PROC: 5A1D70Z Performance of Urinary Filtration, Intermittent, Less than 6 Hours Per Day (ICD-10-PCS; principal; 2019-09-22)
DX: T82.898A Other specified complication of vascular prosthetic devices, implants and grafts, initial encounter (principal); N18.6 End stage renal disease; I12.0 Hypertensive chronic kidney disease with stage 5 chronic kidney disease or end stage renal disease; N25.81 Secondary hyperparathyroidism of renal origin; J81.1 Chronic pulmonary edema; Y83.9 Surgical procedure, unspecified as the cause of abnormal reaction of the patient, or of later complication, without mention of misadventure at the time of the procedure; E03.9 Hypothyroidism, unspecified

== ENCOUNTER → 2019-10-07 09:24 | Outpatient (CLI) | payer MEDICARE ==
[2019-09-22 13:01] VITALS: BMI 24.5
== END | disposition home or self-care (01) ==
LOC: D.CT 09:24
PROVIDERS: ATTEND Surgery
DX: Z86.73 Personal history of transient ischemic attack (TIA), and cerebral infarction without residual deficits (principal); R09.89 Other specified symptoms and signs involving the circulatory and respiratory systems; I73.9 Peripheral vascular disease, unspecified

== ENCOUNTER → 2019-10-16 09:29 | Outpatient (CLI) | payer MEDICARE ==
[2019-09-22 13:01] VITALS: BMI 24.5
== END | disposition home or self-care (01) ==
LOC: D.CT 09:29
PROVIDERS: ATTEND Surgery
DX: Z86.73 Personal history of transient ischemic attack (TIA), and cerebral infarction without residual deficits (principal); R09.89 Other specified symptoms and signs involving the circulatory and respiratory systems; I73.9 Peripheral vascular disease, unspecified; N18.6 End stage renal disease; Z99.2 Dependence on renal dialysis; E07.9 Disorder of thyroid, unspecified

== ENCOUNTER 2019-10-28 06:13 | Day surgery (SDC) | payer MEDICARE ==
[~2019-10-28] VITALS: Ht 160 cm; Wt 61.2 kg
[2019-10-28 06:31] LABS: BASOPHILS 0.7 % (0-2); EOSINOPHILS 4.6 % (0-7); HEMATOCRIT 40.1 % (36.0-48.0); HEMOGLOBIN 12.8 g/dL (12-16); IMMATURE GRANULOCYTES 0.3 % (0-5); LYMPHOCYTES 31.7 % (15-50); MCH 31.4 pg (26.0-34.0); MCHC 31.9 g/dL (31.0-37.0); MCV 98.5 fL (80.0-100.0); MEAN PLATELET VOLUME 9.2 fL (7.4-10.4); MONOCYTES 10.7 % (2-11); PLATELET COUNT 152 10x3/uL (130-400); RBC 4.07 10x6/uL (4.00-5.40); RDW 15.5 % (11.5-14.5); WBC 7.4 10x3/uL (4.8-10.8)
[2019-10-28 07:23] LABS: ANION GAP 15.5 mmol/L (8-16); CALCIUM 8.2 mg/dL (8.5-10.1); CARBON DIOXIDE 28.3 mmol/L (21.0-32.0); CREATININE - SERUM 7.5 mg/dL (0.6-1.3); POTASSIUM - SERUM 5.8 mmol/L (3.5-5.1)
[2019-10-28 07:24] LABS: PROTIME 13.1 SECONDS (11.6-15.0)
[2019-10-28] MEDS ORDERED: AMBIEN10 MG PO (07:31)
[2019-10-28 07:32] VITALS: Ht 160 cm; Wt 61.2 kg
[2019-10-28] MEDS ORDERED: HYDROCODON-ACE1 EAC7 PO (10:41)
--- NOTE | 2019-10-28 11:26 | NUR ---
1120 DR. EMILIO STEWART.
--- NOTE | 2019-10-29 12:31 | OP ---
PATIENT NAME: ESMER LAST MEDICAL RECORD: [id number] :51 LOCATION:[facility] ADMISSION DATE: SURGEON: DILSHAD JHAVERI MD DATE OF OPERATION: 10/28/2019 PREOPERATIVE DIAGNOSES: End-stage renal disease and dependence on hemodialysis with history of ligation of left brachiocephalic AV fistula due to severe steal syndrome with gangrenous ulceration, right hand. The latter, steal syndrome, condition has resolved since ligation of her fistula. POSTOPERATIVE DIAGNOSES: End-stage renal disease and dependence on hemodialysis with history of ligation of left brachiocephalic AV fistula due to severe steal syndrome with gangrenous ulceration, right hand. The latter, steal syndrome, condition has resolved since ligation of her fistula. OPERATION PERFORMED: Proximalization arterial inflow to cephalic vein fistula with interposition of a 4-6 tapered standard wall thickness Propaten PTFE graft from the distal axillary artery to the cephalic vein just above the antecubital space. SURGEON: Dilshad Jhaveri MD ANESTHESIA: General with LMA per OYSTER FISHERMAN. PREOPERATIVE NOTE: This lady has end-stage renal disease and has been dialyzing for some time with a left brachiocephalic AV fistula with symptomatic steal syndrome. She had developed gangrenous ulcers on her hand back in August. I saw her and ligated her fistula and since that time her ulcers have healed and her pain is gone. She though still needs long-term dialysis access. She is presently dependent on a right-sided internal jugular tunneled dialysis catheter. She has had bilateral upper extremity CTAs which demonstrate no significant arterial stenoses or lesions on either side, at least above the elbow level and really pretty good forearm vessels bilaterally. She is right handed and if possible, we are going to try to keep her access on the left side by proximalization of the arterial inflow. The cephalic vein fistula has been kept open by collateral flow from the cephalic vein in the forearm which means that it is still available for outflow for her access. DESCRIPTION OF PROCEDURE: Under general anesthesia in supine position, the patient was prepped and draped in a sterile manner. I examined her with Duplex ultrasound and confirmed the cephalic vein was still patent from elbow to deltopectoral groove and the axillary artery and proximal brachial artery looked quite clean without atherosclerotic change or calcifications and of normal caliber. There was a good pulsation maintained in the stump of the old fistula on the brachial artery at the elbow. I made a transverse axillary incision and exposed the distal axillary artery and controlled it with Silastic loops preserving collaterals. I made an oblique incision distally over the fistula just above the elbow and exposed the vein and ligated and divided the cephalic vein collateral. I chose a 4-6 mm tapered Propaten graft and prepared it for anastomosis. The artery was occluded with Silastic loops and an atraumatic vascular clamp. The artery was opened for a small distance and then a 3.5 mm aortic punch was utilized to create the anastomotic orifice. The tapered segment of the graft was then shortened and beveled and then anastomosed to the artery with continuous running 6-0 Prolene OPERATIVE REPORT [id number] ESMER LAST and this was after the artery was flushed generously proximally and distally with heparinized saline. No systemic heparin or additional anticoagulation was used. The graft was pulled through a subcutaneous tunnel to the distal incision where the graft was shortened and beveled and the cephalic vein transected and beveled and then an end-to-end anastomosis performed with running 6-0 Prolene. When completed and the occluding loops and clamps were released, excellent flow developed immediately in the new hybrid AV graft/fistula and the suture lines were hemostatic. The wounds were irrigated with Ancef and gentamicin solution. The wounds were infiltrated with 0.25% Marcaine without epinephrine and the wounds were then closed without the use of a drain approximating subcutaneous tissues with interrupted inverted 3-0 Vicryl and the skin was closed with a running intracuticular 4-0 Stratafix. The skin incisions were further sealed with Dermabond glue and dressed with Maxorb Ag, Tegaderm, and Cavilon skin prep. She was then awakened and taken to the recovery room. Blood loss during the operation was trivial 5 cc or less. Sponges, instruments, and needles were accounted for. No drain was used and no surgical specimen was submitted for histopathology. PLAN: Allow the patient to go home today. She will continue her same diet, same medications and routine dialysis schedule. We will continue to use her TDC until after she returns to see me in my office of next week. I am sure subsequent to that, we can begin dialyzing her with her fistula and hopefully very soon after that get her tunneled catheter removed. TRANSINT:[id number] Voice Confirmation ID: [id number] DOCUMENT ID: [id number] DILSHAD JHAVERI MD at 1231 CC: DOMINICK SPENCER MD [id number] DICTATION DATE: 10/28/19 1100 GENETIC PHYSICIAN: 10/28/192104 [facility] 10/28/19 [place] [id number] [place] [id number]
== END 2019-10-28 12:45 | disposition home or self-care (01) ==
LOC: D.OPS 06:13
PROVIDERS: Surgery; ATTEND Internal Medicine Nephrology
DX: N18.6 End stage renal disease (principal); Z99.2 Dependence on renal dialysis; T82.898A Other specified complication of vascular prosthetic devices, implants and grafts, initial encounter; Z86.69 Personal history of other diseases of the nervous system and sense organs; I10 Essential (primary) hypertension

== ENCOUNTER 2019-11-18 06:09 | Day surgery (SDC) | payer MEDICARE ==
[~2019-11-18] VITALS: Ht 160 cm; Wt 61.2 kg
[2019-11-18 06:34] LABS: ANION GAP 16.2 mmol/L (8-16); CALCIUM 8.7 mg/dL (8.5-10.1); CARBON DIOXIDE 29.1 mmol/L (21.0-32.0); CREATININE - SERUM 7.4 mg/dL (0.6-1.3); POTASSIUM - SERUM 4.3 mmol/L (3.5-5.1)
[2019-11-18 06:41] LABS: EOSINOPHILS 5.2 % (0-7); HEMATOCRIT 37.3 % (36.0-48.0); HEMOGLOBIN 11.4 g/dL (12-16); IMMATURE GRANULOCYTES 0.2 % (0-5); INR 1.01 (0.85-1.17); LYMPHOCYTES 33.4 % (15-50); MCH 30.2 pg (26.0-34.0); MCHC 30.6 g/dL (31.0-37.0); MCV 98.7 fL (80.0-100.0); MEAN PLATELET VOLUME 8.7 fL (7.4-10.4); MONOCYTES 11.1 % (2-11); NEUTROPHILS 49.1 % (40-80); PLATELET COUNT 155 10x3/uL (130-400); PROTIME 13.2 SECONDS (11.6-15.0); RBC 3.78 10x6/uL (4.00-5.40); RDW 16.1 % (11.5-14.5); WBC 6.1 10x3/uL (4.8-10.8)
[2019-11-18] MEDS ORDERED: BREO ELLIPTA 21 EACH (08:26)
[2019-11-18] MEDS ORDERED: HYDRALAZINE HCL50 MG PO (08:28)
[2019-11-18 08:35] VITALS: Ht 160 cm; Wt 61.2 kg
[2019-11-18] MEDS ORDERED: ULTRAM50 MG PO (12:25)
--- NOTE | 2019-11-18 14:28 | NUR ---
1350 DRESSED, AWAKE, & ALERT. GIVEN MED REC, & [facility] D/C INSTRUCTIONS. INFORMED RX: [facility]TR[facility] CALLED TO [employer] [address] REQUESTED, SYSTEM DOWN @ DR. JHAVERI'S OFFICE TO MAKE F/U APPT. OFFICE TO CALL WITH APPT. PT REMINDED IF DOESNT HEAR FROM OFFICE TO CALL FOR F/U APPT. PT VOICED UNDERSTANDING. TO PRIVATE CAR PER WHEELCHAIR BY THIS NURSE. HOME WITH MR. LAST. Magui JOYA R.N.
--- NOTE | 2019-11-20 17:26 | OP ---
PATIENT NAME: ESMER FLANAGAN MEDICAL RECORD: [id number] :51 LOCATION:[facility] ADMISSION DATE: SURGEON: DILSHAD JHAVERI MD DATE OF OPERATION: 11/18/2019 PREOPERATIVE DIAGNOSES: End-stage renal disease and dependence on hemodialysis and steal syndrome associated with left upper extremity arteriovenous graft and peripheral arterial disease. POSTOPERATIVE DIAGNOSES: End-stage renal disease and dependence on hemodialysis and steal syndrome associated with left upper extremity arteriovenous graft and peripheral arterial disease. OPERATION PERFORMED: Fistulogram followed through to the right atrium and including a retrograde injection with digital occlusion of outflow tract. Then, selective left proximal and distal brachial artery arteriograms and placement of an 8 mm diameter x 5 cm long Viabahn PTFE covered endovascular stent and placement of two 2-0 Prolene ligatures around that stented segment of the existing Propaten PTFE AV graft with the ligatures tied with a 5 mm diameter angioplasty balloon inflated within the stent. Then, balloon angioplasty of a remote brachial artery stenosis at the site of an old brachiocephalic anastomosis. Then, open exploration of the old arteriovenous anastomosis with ligation of a single remaining venous outflow tract. SURGEON: Dilshad Jhaveri MD ANESTHESIA: General with LMA per HIGH DENSITY PRESS OPERATOR. PREOPERATIVE NOTE: Ms. Flanagan is a very nice lady who had a left brachiocephalic AV fistula for a prolonged period of time and developed severe steal syndrome and gangrene of the skin and subcutaneous tissues over her left second metacarpophalangeal joint and suffered from chronic ischemic pain in her hand for quite a long time before she was seen in my office and diagnosed with steal syndrome. I subsequently took her to the operating room and divided the fistula near the arterial anastomosis and implanted a Propaten PTFE graft between the proximal brachial artery and the cephalic vein just above the old anastomosis, thereby converting the existing AV fistula into a hybrid type fistula half graft and half existing cephalic vein fistula. She felt immediate improvement as far as the ischemic pain in her hand and has healed the gangrenous lesions and ulcerations. However, more recently, she has been having worse ischemic pain during dialysis and in the evenings, especially particularly involving the left fourth and fifth fingers. She on examination shown to have still some venous outflow from the old fistula into the forearm and I believe that we can diminish flow in her fistula a bit more with a Palomares banding technique and also explore the old fistula just in the forearm and ligate residual venous outflow from this original bidirectional outflow fistula. Under anesthesia, the patient was prepped and draped in sterile manner. The fistula was accessed with micropuncture technique in the direction of the arterial anastomosis and an 8-Polish introducer was placed. A fistulogram was performed through the right atrium, which revealed no stenoses and a good flow. Retrograde angiogram was done with digital compression of the venous outflow. This revealed no evidence of arterial anastomosis or any disease or abnormality of the perianastomotic brachial artery. I then performed a selective brachial artery catheterization by passing a guidewire and then a glide catheter through OPERATIVE REPORT [id number] SHALAESMER L the graft and through the arterial anastomosis first up into the proximal brachial artery and subsequently it was passed selectively downward into the distal brachial artery. Repeated injections were done, which did demonstrate significant improvement and flow into the forearm with occlusion of the fistula and the existence of numerous venous outflow channels still filling from the residual fistula. At this point, I went ahead with the banding procedure. I placed a Viabahn 8-mm diameter x 5 cm covered endovascular stent in the JA segment of the PTFE and then placed a 5-mm angioplasty balloon within it and encircled the graft in this segment with two 2-0 Prolene ligatures which were both tied down snugly around the balloon approximately a centimeter apart. The balloon was deflated. Contrast injection demonstrated nice result with definite indentations over the stented segment. The guidewire was then again advanced distally in the brachial artery and the glide catheter over that and selective distal brachial artery arteriograms performed in order to identify the arterial outflow from the old anastomosis and the venous channels. I performed a balloon angioplasty with a 5 mm angioplasty balloon dilating the approximate 60% stenosis of the brachial artery at the proximal end of the old anastomosis with residual 0% diameter stenosis. Contrast injection revealed improved flow through the arterial segments, but persistent filling of the venous outflow. I then made an incision on the medial aspect of the arm at the antecubital space and exposed the prior arteriovenous anastomosis. I identified the distal brachial artery and the proximal radial and ulnar arteries and of the anastomotic suture line and the single remaining vein which originated distally and flowed distally into the forearm. This was ligated with multiple clips and 2-0 Vicryl ligature and a repeat angiogram then demonstrated excellent arterial flow and no venous flow from this old fistula site. The hand became increasingly pink and warm. I did apply some nitroglycerin ointment to the base of the fingers on that hand to speed up some vasodilatation. The 8-Polish sheath was removed from the graft and hemostasis obtained with a 4-0 Prolene [id number] suture and some direct pressure. The wounds were irrigated with Ancef/gentamicin solution and infiltrated with 0.25% Marcaine without epinephrine and closed with interrupted inverted 3-0 Vicryl and then running intracuticular 4-0 Stratafix and Dermabond glue. They were dressed with Maxorb Ag, Tegaderm, and Cavilon skin prep. The patient was then awakened and with a much better vascularized forearm and hand returned to the recovery room. I plan to see the patient back in my office next week. She is given a prescription for additional tramadol 50 mg; she can take 1-2 every 4 hours p.r.n. for pain, given 20 tablets. I have advised her to keep her dressings dry and clean and intact. If possible, I will plan to remove them when she sees me in the office next week. We will notify her dialysis unit that they should began using her old fistula very soon this week, probably. She is to continue all of her same medicines and diet and routine dialysis schedule. TRANSINT:[id number] Voice Confirmation ID: [id number] DOCUMENT ID: [id number] OPERATIVE REPORT [id number] ESMER FLANAGAN JAMES MD at 1724 CC: DOMINICK SPENCER MD [id number] DICTATION DATE: 11/18/19 1256 GLOBAL LOGISTICS ANALYST: 11/18/199 [facility] 11/18/19 [facility] [address] [place] [address]
== END 2019-11-18 13:50 | disposition home or self-care (01) ==
LOC: D.OPS 06:09
PROVIDERS: Surgery; ATTEND Internal Medicine Nephrology
DX: N18.6 End stage renal disease (principal); Z99.2 Dependence on renal dialysis; T82.898A Other specified complication of vascular prosthetic devices, implants and grafts, initial encounter; Z86.69 Personal history of other diseases of the nervous system and sense organs; I10 Essential (primary) hypertension

== ENCOUNTER → 2020-05-28 11:00 | Outpatient (CLI) | payer MEDICARE ==
[2019-11-18 08:35] VITALS: BMI 23.9
[~2020-05-28 11:00] MED LIST changes: +BREO ELLIPTA 21 EACH; +HYDRALAZINE HCL50 MG PO; +ULTRAM50 MG PO
== END | disposition home or self-care (01) ==
LOC: D.RT 11:00
PROVIDERS: ATTEND Internal Medicine Pulmonary Disease
DX: J44.9 Chronic obstructive pulmonary disease, unspecified (principal); Z11.52 Encounter for screening for COVID-19